=== PATIENT | male | born 1950 | race Caucasian/White ===

== ENCOUNTER 2020-05-08 08:10 | Outpatient (CLI) | payer MEDICARE, BC ==
--- NOTE | 2020-05-08 08:37 | ULT ---
ULTRASOUND RETROPERITONEUM LIMITED: (ABDOMINAL AORTA) DATE: 05/08/2020 HISTORY: Abdominal aortic aneurysm screening study for 69-year-old male FINDINGS: The maximum caliber of the abdominal aorta is 2.2 cm. IMPRESSION: No abdominal aortic aneurysm.
== END 2020-05-08 08:11 | disposition home or self-care (01) ==
LOC: BICULT 08:10
PROVIDERS: ATTEND Student in an Organized Health Care Education/Training Program
DX: Z13.6 Encounter for screening for cardiovascular disorders (principal)
CPT/HCPCS: 76775

== ENCOUNTER 2020-09-08 12:26 | Outpatient (CLI) | payer MEDICARE, BC ==
--- NOTE | 2020-09-08 12:52 | RAD ---
XR Chest Pa Lat STANDARD HISTORY: Cough and chest pain COMPARISON: None FINDINGS: The heart size is normal. The lungs are well expanded without focal areas of consolidation, pneumothorax or pleural effusions. There are few tiny calcified granulomas. IMPRESSION: No radiographic evidence of acute cardiopulmonary process.
== END 2020-09-08 12:27 | disposition home or self-care (01) ==
LOC: BICRAD 12:26
PROVIDERS: ATTEND Student in an Organized Health Care Education/Training Program
DX: R05 Cough (principal)
CPT/HCPCS: 71046

== ENCOUNTER 2021-06-16 19:00 | Outpatient (CLI) | payer MEDICARE, BC | END 2021-06-16 19:01 | disposition home or self-care (01) | LOC: SLEEPLAB 19:00 | PROVIDERS: ATTEND Student in an Organized Health Care Education/Training Program | DX: G47.33 Obstructive sleep apnea (adult) (pediatric) (principal); K21.9 Gastro-esophageal reflux disease without esophagitis; I10 Essential (primary) hypertension; R06.83 Snoring; G47.10 Hypersomnia, unspecified; G47.00 Insomnia, unspecified; E66.9 Obesity, unspecified; Z68.31 Body mass index [BMI] 31.0-31.9, adult | CPT/HCPCS: 95810 ==

== ENCOUNTER 2022-11-01 14:50 | Outpatient (CLI) | payer MEDICARE, BC | END 2022-11-01 14:51 | disposition home or self-care (01) | LOC: SCSRAD 14:50 | PROVIDERS: ATTEND Family Medicine | DX: M25.561 Pain in right knee (principal); M17.11 Unilateral primary osteoarthritis, right knee ==

== ENCOUNTER 2023-08-18 08:43 | Outpatient (CLI) | payer MEDICARE, BC | END 2023-08-18 08:44 | disposition home or self-care (01) | LOC: BICULT 08:43 | PROVIDERS: ATTEND Nurse Practitioner Family | DX: R35.0 Frequency of micturition (principal) | CPT/HCPCS: 76856 ==